=== PATIENT | female | born 1940 | race Caucasian/White ===

== ENCOUNTER 2020-04-01 02:16 | Outpatient (CLI) | payer OTHER, SELFPAY ==
[2020-04-01 18:25] LABS: SARS-CoV-2 RNA PCR Negative
== END 2020-04-01 02:17 | disposition home or self-care (01) ==
LOC: ANHCOVIDDT 02:16
PROVIDERS: PCP Family Medicine; Visit Provider Internal Medicine Gastroenterology
DX: Z01.812 Encounter for preprocedural laboratory examination (principal); Z20.828 Contact with and (suspected) exposure to other viral communicable diseases
CPT/HCPCS: 87635; C9803; U0003

== ENCOUNTER 2020-04-04 01:52 | Day surgery (SDC) | payer OTHER, SELFPAY ==
[2020-03-24 15:13] VITALS: BMI 17.9
[2020-04-04 06:34] VITALS: BP 167/72; PULSE 72; RESP 16; TEMP 36.6; O2SAT 100; BMI 18.1
[2020-04-04] MEDS: LACTATED RINGERS 1,000 ML 150 ML IV CONT (06:50)
--- NOTE | 2020-04-04 07:25 | WPDANESEPPF ---
Anes - Initial Pre Proc Eval Procedure: Operation Date: 04/04/20 07:30 Proposed Procedures p Colonoscopy - Cj Stafford MD Date/Time: 04/04/20 07:25 Surgeon: Cj Stafford MD Pre Op Diagnosis: Positive Cologuard Patient Data Age: 79 Gender: F Height: 5 ft 4 in Weight: 48.1 kg Last Vital Signs Temp 97.9 F 04/04/20 06:34 Pulse 72 04/04/20 06:34 Resp 16 04/04/20 06:34 BP 167/72 H 04/04/20 06:34 Pulse Ox 100 04/04/20 06:34 Allergies Allergy/AdvReac Type Severity Reaction Status Date / Time No Known Allergies Allergy Mild Verified 04/04/20 06:29 Home Medications Medication Instructions Recorded Confirmed Type amlodipine 5 mg tablet 5 mg PO DAILY #90 tablet 12/08/19 03/24/20 Rx calcitonin (salmon) 200 1 spray INTRANASAL (ALT) DAILY 12/08/19 03/24/20 Rx unit/actuation nasal spray #3.7 ml clopidogrel 75 mg tablet 75 mg PO DAILY #90 tablet 12/08/19 04/04/20 Rx metoprolol tartrate 25 mg tablet 25 mg PO BID #180 tablet 01/19/20 04/04/20 Rx atorvastatin 20 mg tablet 20 mg PO DAILY #90 tablet 02/25/20 03/24/20 Rx Patient hx anesthesia problems: none Family hx anesthesia problems: none PMFSH Past Medical History Medical History Cerebral atrophy Coronary atherosclerosis HTN (hypertension) Mixed hyperlipidemia Osteoporosis Family History Family History Mother Family history of Alzheimer's disease Family history of osteoporosis Family history of mental disorder Depression Family history of cataracts Family history of liver disease Family history of arthritis Family history of heart disease in male family member before age 55 Father Family history of alcoholism Family history of arthritis Patient's father is Family history of malignant neoplasm Family history of lung disease Other Family history of lung cancer Social History Social History (Updated 01/05/20 @ 15:05 by Shi Pierre) Social History: Smoking status: Former smoker Second hand tobacco smoke exposure: No Smoking end date: 06/17/86 Alcohol intake: never Substance use: never Substance use type: does not use Living arrangements: alone Gender identity (if verbalized by the patient): Female Spiritual care concerns: No Anes - Eval Final PreProcedure Day of Procedure 04/04/20 07:25 Patient weight: normal Heart: regular rate and rhythm Lungs: clear to auscultation Airway: Mallampati scale class II Neurological: alert and oriented Last oral intake: >/= 8 hours ASA classification: III Emergent: no Anesthetic plan: proceed Anesthesia type and monitoring: general GIVS and standard monitoring Informed Consent: The patient's anesthetic plan and its attendant risks and benefits were discussed with the patient/family/POA. Questions were solicited and answers provided to the satisfaction of the patient/family/POA.
--- NOTE | 2020-04-04 07:58 | WPDGICN ---
Assessment and Plan Assessment and plan (1) Positive colorectal cancer screening using Cologuard test: Code(s): R19.5 - Other fecal abnormalities Status: Inactive Assessment and Plan: Patient recently found to have positive: Guard test. Plan is for colonoscopy to evaluate more thoroughly. It has been 7 years since last exam. (2) Family history of colonic polyps: Code(s): Z83.71 - Family history of colonic polyps Status: Acute Assessment and Plan: Patient's mother had colon polyps. Screening colonoscopy at intervals is suggested. GI Consult Note Consult date/time: 04/04/20 07:58 HPI: Malaika Quinones is a 79 year old female Seen in evaluation at the request of Dr. Cohn. Patient recently had a positive: Guard test in presents for colonoscopy. She states that her weight appetite bowel movements are normal. She denies abdominal pain. She has had no blood in her stools. Family history is significant that her mother had colon polyps. Patient's last colonoscopy was 7 or 8 years ago. Review of Systems Review of Systems: All systems reviewed & are unremarkable except as noted in HPI and below PMFSH Past Medical History Medical History (Updated 04/04/20 @ 08:00 by Cj Stafford MD) Cerebral atrophy Coronary atherosclerosis HTN (hypertension) Mixed hyperlipidemia Osteoporosis Positive colorectal cancer screening using Cologuard test Family History Family History Mother Family history of Alzheimer's disease Family history of osteoporosis Family history of mental disorder Depression Family history of cataracts Family history of liver disease Family history of arthritis Family history of heart disease in male family member before age 55 Father Family history of alcoholism Family history of arthritis Patient's father is Family history of malignant neoplasm Family history of lung disease Other Family history of lung cancer Social History Social History (Updated 01/05/20 @ 15:05 by Shi Pierre) Social History: Smoking status: Former smoker Second hand tobacco smoke exposure: No Smoking end date: 06/17/86 Alcohol intake: never Substance use: never Substance use type: does not use Living arrangements: alone Gender identity (if verbalized by the patient): Female Spiritual care concerns: No Meds Home Medications and Allergies Home Medications Medication Instructions Recorded Confirmed Type amlodipine 5 mg tablet 5 mg PO DAILY #90 tablet 12/08/19 03/24/20 Rx calcitonin (salmon) 200 1 spray INTRANASAL (ALT) DAILY 12/08/19 03/24/20 Rx unit/actuation nasal spray #3.7 ml clopidogrel 75 mg tablet 75 mg PO DAILY #90 tablet 12/08/19 04/04/20 Rx metoprolol tartrate 25 mg tablet 25 mg PO BID #180 tablet 01/19/20 04/04/20 Rx atorvastatin 20 mg tablet 20 mg PO DAILY #90 tablet 02/25/20 03/24/20 Rx Allergies Allergy/AdvReac Type Severity Reaction Status Date / Time No Known Allergies Allergy Mild Verified 04/04/20 06:29 Vital Signs Vital Signs - 24 hr 04/04/20 06:34 Temperature 97.9 F Pulse Rate 72 Respiratory Rate 16 Blood Pressure 167/72 H Pulse Oximetry 100 Exam Narrative: Exam Narrative: Physical exam reveals patient to be alert. Vital signs stable. HEENT exam unremarkable. Lungs are clear to auscultation and percussion. Heart is without murmur or extra sounds. Abdominal exam bowel sounds are present soft nontender with no hepatosplenomegaly. Digital external rectal exam is normal.
[2020-04-04 08:00] VITALS: BP 81/45; PULSE 56; RESP 14; O2SAT 97
[2020-04-04 08:10] VITALS: BP 99/61; PULSE 55; RESP 16; O2SAT 98
[2020-04-04 08:20] VITALS: BP 127/67; PULSE 52; RESP 16; O2SAT 99
[2020-04-04 08:30] VITALS: BP 132/75; PULSE 52; RESP 18; O2SAT 100
== END 2020-04-04 08:52 | disposition home or self-care (01) ==
PROVIDERS: PCP Family Medicine; Visit Provider Internal Medicine Gastroenterology
PROC: 0DJD8ZZ Inspection of Lower Intestinal Tract, Via Natural or Artificial Opening Endoscopic (ICD-10-PCS; CPT 45378; principal; 2020-04-04 07:30)
DX: R19.5 Other fecal abnormalities (principal); D12.2 Benign neoplasm of ascending colon; K64.8 Other hemorrhoids; Z83.71 Family history of colonic polyps; I10 Essential (primary) hypertension; I25.10 Atherosclerotic heart disease of native coronary artery without angina pectoris; M81.0 Age-related osteoporosis without current pathological fracture; E78.2 Mixed hyperlipidemia; Z87.891 Personal history of nicotine dependence; Z79.02 Long term (current) use of antithrombotics/antiplatelets
CPT/HCPCS: 45385; 88305; J2704; J7120

== ENCOUNTER 2021-09-05 11:39 | Emergency (ER) | payer OTHER, SELFPAY ==
--- NOTE | ~2021-09-05 | XR_ITS ---
XR hip LT min 3V w AP pelvis 09/05/2021 13:21 Indication: Left hip pain and bruising Procedure: AP pelvis and 3 views left hip Comparison: No prior studies for comparison. Findings: There are nondisplaced fractures of the left superior pubic ramus, pubic symphysis and poss ibly the left inferior pubic ramus. Osteopenia. Mild osteoarthritis of the hips. There is lower lumba r spondylosis. Impression: 1: Nondisplaced fractures left superior pubic ramus/pubic rami and possibly of the left inferior pubi c ramus. Reviewed, dictated and finalized at location A. Impression: 1: Nondisplaced fractures left superior pubic ramus/pubic rami and possibly of the left inferior pubic ramus.
[2021-09-05 11:44] VITALS: BP 155/76; PULSE 94; RESP 16; TEMP 36.7; O2SAT 95
--- NOTE | 2021-09-05 14:14 | ED.FALL ---
HPI - Fall General Chief Complaint: Fall Stated Complaint: fall, hip pain Time Seen by Provider: 09/05/21 12:37 Related Data Allergies Allergy/AdvReac Type Severity Reaction Status Date / Time No Known Allergies Allergy Mild Verified 05/30/21 11:30 [facility] Past Medical History Medical History (Updated 09/05/21 @ 14:17 by Alona Weems MD) Cerebral atrophy Coronary atherosclerosis HTN (hypertension) Mixed hyperlipidemia Osteoporosis Positive colorectal cancer screening using Cologuard test Surgical History Surgical History (Updated 06/17/21 @ 17:57 by Suki Reyes MD) H/O breast augmentation Hx of colonoscopy with polypectomy Family History Family History Mother Family history of Alzheimer's disease Family history of osteoporosis Family history of mental disorder Depression Family history of cataracts Family history of liver disease Family history of arthritis Family history of heart disease in male family member before age 55 Father Family history of alcoholism Family history of arthritis Patient's father is Family history of malignant neoplasm Family history of lung disease Other Family history of lung cancer Social History Social History Social History: Smoking status: Former smoker Tobacco type: cigarettes Second hand tobacco smoke exposure: No Smoking end date: 06/17/86 Alcohol intake: never Substance use: never Substance use type: does not use Gender identity (if verbalized by the patient): Female Sexual Orientation (if Verbalized by the Patient): Straight or Heterosexual Spiritual care concerns: No Course Vital Signs Vital signs: Vital Signs Temperature 36.7 C 09/05/21 11:44 Pulse Rate 94 09/05/21 11:44 Respiratory Rate 16 09/05/21 11:44 Blood Pressure 155/76 H 09/05/21 11:44 Pulse Oximetry 95 09/05/21 11:44 Temperature 36.7 C 09/05/21 11:44 Pulse Rate 94 09/05/21 11:44 Respiratory Rate 16 09/05/21 11:44 Blood Pressure 155/76 H 09/05/21 11:44 Pulse Oximetry 95 09/05/21 11:44 MDM - Fall Imaging Data Radiologist's impression: Impressions Hip/Pelvis X-Ray 09/05/21 13:22 Impression: 1: Nondisplaced fractures left superior pubic ramus/pubic rami and possibly of the left inferior pubic ramus. Critical Care Time Critical Care Time Critical Care Time: No Discharge Plan Discharge Clinical Impression: Closed pelvic fracture Qualifiers: Encounter type: subsequent encounter Pelvic bone location: pubis Sublocation of pubis: unspecified portion of pubis Laterality: left Fracture healing: with nonunion Qualified Code(s): S32.502K - Unspecified fracture of left pubis, subsequent encounter for fracture with nonunion Patient Disposition: Home, Self-Care Condition: Stable Instructions: Antibiotic Form, Pelvic Fracture (ED) Additional Instructions: Return if symptoms are worsening , call your family physician for appointment, take Tylenol as as needed for aches and pain, continue home medications. Prescriptions: New tramadol [Ultram] 50 mg tablet 50 mg PO Q6H PRN (Reason: pain) Qty: 30 RF: 0 No Action calcitonin (salmon) 200 unit/actuation spray,non-aerosol 1 spray intranasal (ALT) DAILY Qty: 3.7 RF: 5 atorvastatin 20 mg tablet See Rx Instructions .ROUTE .COMPLEX Qty: 90 RF: 1 clopidogrel 75 mg tablet 75 mg PO DAILY Qty: 90 RF: 1 amlodipine 5 mg tablet 5 mg PO DAILY Qty: 90 RF: 1 metoprolol tartrate 25 mg tablet 25 mg PO BID Qty: 180 RF: 1 Follow-up/Referrals: Devonte Loyd MD [Physician] - 09/06/21 Suki Reyes MD [Primary Care Provider] -
== END 2021-09-05 14:58 | disposition home or self-care (01) ==
PROVIDERS: Emergency Provider Emergency Medicine; PCP Family Medicine
DX: S32.592A Other specified fracture of left pubis, initial encounter for closed fracture (principal); W10.9XXA Fall (on) (from) unspecified stairs and steps, initial encounter; G31.9 Degenerative disease of nervous system, unspecified; I25.10 Atherosclerotic heart disease of native coronary artery without angina pectoris; I10 Essential (primary) hypertension; E78.2 Mixed hyperlipidemia; M81.0 Age-related osteoporosis without current pathological fracture; Z87.891 Personal history of nicotine dependence
CPT/HCPCS: 73502; 99283

== ENCOUNTER 2021-09-19 15:47 | Outpatient (CLI) | payer OTHER, SELFPAY ==
--- NOTE | ~2021-09-19 | XR_ITS ---
EXAMINATION: XR hip RT 2V w AP pelvis EXAM DATE: 09/19/2021 16:28 INDICATION: Fell 2 Weeks Ago, Pain In Rt Hip Ever Since, Hurts To W/B TECHNIQUE: Right hip frontal, 'frog leg' projections for interpretation. Frontal projection pelvis. Comparison is made to prior examination from 09/05/2021. FINDINGS: Smooth right hip femoral head contour, no radiographic evidence of avascular necrosis. No evidence of right hip fracture. Again there our left pubic symphysis, superior, inferior rami fractu res. There is large amount of colonic stool which is obscuring the sacral arcuate lines, confidently evaluate for sacral fracture. No hip dislocation. Mild lumbar levoscoliosis. IMPRESSION: 1. Acute left pubis, rami fractures. Sacrum poorly visualized. 2. Intact right hip. Reviewed, dictated and finalized at location A.
== END 2021-09-19 15:48 | disposition home or self-care (01) ==
PROVIDERS: PCP Family Medicine; Visit Provider Nurse Practitioner Gerontology
DX: M25.551 Pain in right hip (principal); S32.592A Other specified fracture of left pubis, initial encounter for closed fracture
CPT/HCPCS: 73502

== ENCOUNTER → 2022-01-29 13:07 | Outpatient (CLI) | payer OTHER, SELFPAY ==
--- NOTE | ~2022-01-29 | XR_ITS ---
EXAMINATION: XR chest 2V 01/29/2022 13:21 INDICATION: Hyperlipidemia. PROCEDURE: 2 view chest COMPARISON: 09/19/2007 FINDINGS: No evidence for acute focal pneumonia, edema or pneumothorax. The cardiomediastinal silhoue tte is within normal limits. There are no pleural effusions. There is no pneumothorax suspected. T here are partially calcified bilateral breast implants. There is bibasilar atelectasis/scarring. The lungs are hyperinflated which is consistent with, but not diagnostic of chronic obstructive pulmonary disease. IMPRESSION: 1: Bibasilar atelectasis/scarring. Reviewed, dictated and finalized at location B.
== END ==
PROVIDERS: PCP Family Medicine; Visit Provider Nurse Practitioner Gerontology
DX: E78.2 Mixed hyperlipidemia (principal); I10 Essential (primary) hypertension; R05.3 Chronic cough; R91.8 Other nonspecific abnormal finding of lung field
CPT/HCPCS: 71046

== ENCOUNTER → 2022-05-07 14:47 | Outpatient (CLI) | payer OTHER, SELFPAY ==
--- NOTE | ~2022-05-07 | XR_ITS ---
EXAM: XR thoracic spine 3V DATE: 05/07/2022 15:09 HISTORY: fall 1 week ago neck and mid back pain . COMPARISON: X-ray chest 01/29/2022. FINDINGS: Breast augmentation. An electronic device or monitor overlies the left chest. Thoracic scol iosis. Severe osteopenia. Concave endplate deformities. Vertebral body alignment intact. Increased no w severe anterior wedge deformity of an upper thoracic vertebral body, likely T5. Stable mild height loss in a mid/lower vertebral body, possibly T9. No disc space narrowing. Visualized lung parenchyma is clear. IMPRESSION: Possible interval worsening of the now severe compression deformity in the upper thoracic spine, likely at T5, correlate with acute pain/tenderness. Reviewed, dictated and finalized at location K. ICATION INTEGRATOR IMPRESSION: Possible interval worsening of the now severe compression deformity in the upper thoracic spine, likely at T5, correlate with acute pain/tendernes s.
--- NOTE | ~2022-05-07 | XR_ITS ---
EXAM: XR_CERV2-3V_CR DATE: 05/07/2022 15:09 HISTORY: fall 1 week ago neck and mid back pain . COMPARISON: MR cervical spine 01/04/2010. FINDINGS: Severe osteopenia. Craniocervical association and atlantoaxial joint are aligned. No prever tebral soft tissue swelling. Vertebral bodies are aligned. Lower cervical straightening. Head forward positioning, with exaggeration of the upper cervical lordosis mild anterior wedge deformity at C6, t he remaining vertebral body heights are maintained. Multilevel mild degenerative disc disease. Multil evel mild facet arthropathy. IMPRESSION: Mild wedge compression fracture at C6 of uncertain age, correlate with pain/tenderness. Reviewed, dictated and finalized at location K. INTERNSHIP IMPRESSION: Mild wedge compression fracture at C6 of uncertain age, correlate w ith pain/tenderness.
== END ==
PROVIDERS: PCP Family Medicine; Visit Provider Nurse Practitioner Gerontology
DX: S12.591A Other nondisplaced fracture of sixth cervical vertebra, initial encounter for closed fracture (principal); X58.XXXA Exposure to other specified factors, initial encounter
CPT/HCPCS: 72040; 72072

== ENCOUNTER 2022-08-16 13:42 | Outpatient (CLI) | payer OTHER, SELFPAY ==
--- NOTE | ~2022-08-16 | DEXA_ITS ---
Bone Density Report Name: NASIMA POSEY Age: 82 Sex: Female Ethnicity: White Date of : 1940 Indication: postmenopausal; screening for osteoporosis; height loss; prior fracture; hysterectomy; Referring Provider: MADDY BARNETT Study: Bone densitometry was performed. Exam Date: August 16, 2022 Accession number: [id number] Bone Density: Region BMD T-score Z-score Classification AP Spine(L1, L2, L3) 0.596 -3.8 -1.2 Osteoporosis Femoral Neck (Left) 0.493 -3.2 -0.9 Osteoporosis Total Hip (Left) 0.608 -2.7 -0.6 Osteoporosis Femoral Neck (Right) 0.504 -3.1 -0.8 Osteoporosis Total Hip (Right) 0.551 -3.2 -1.1 Osteoporosis Total Hip Mean 0.580 -3.0 -0.9 Osteoporosis World Health Organization criteria for BMD impression classify patients as: Normal (T-score at or above -1.0), Osteopenia (T-score between -1.0 and -2.5), or Osteoporosis (T-score at or below -2.5). 10-year Fracture Risk: FRAX not reported because: Some T-score for Spine Total or Hip Total or Femoral Neck at or below -2.5 Prior hip or vertebral fracture Treated for osteoporosis Clinical Information Provided by Patient: Have had a previous hip or vertebral fracture Has had a low trauma fracture Is being treated for osteoporosis Has used the following medications: Fosamax (i.e. alendronate), Vitamin D, Calcium Has the following medical conditions: Hysterectomy Patient maximum height was 66 Menopause Age: 33 Drinks caffeinated beverages Onset of menses at age 14 Number of children 3 Impression: The patient has established osteoporosis, based on the Total Spine T-score and the existence of a prior fracture. The patient has risk factors, including: previous fracture. Discussion: It is important to ask patients whether they are taking their medications and to encourage continued and appropriate compliance with their osteoporosis therapies to reduce fracture risk. It is also important to review their risk factors and encourage appropriate calcium and vitamin D intakes, exercise, fall prevention and other lifestyle measures. Follow-Up: Consider a repeat BMD and Vertebral Fracture Assessment (VFA) exam in 2 years or sooner if medically necessary, to reassess this patient's status. Reported by: DAWN on 08/16/2022 2:54:00 PM. Reviewed, dictated and finalized at location AMichael CORTEZ
--- NOTE | ~2022-08-16 | MM_ITS ---
EXAMINATION: MM scrn matheus implant BI w sandie HISTORY: Screening mammogram TECHNIQUE: Craniocaudal and mediolateral oblique 3-D tomosynthesis images with implant displacement a nd synthetic 2-D images were generated. Craniocaudal and mediolateral oblique views of the breasts wi thout implant displacement were obtained using full field digital mammography. CAD analysis was submi tted and interpreted. COMPARISON: 03/01/2016, 01/06/2015 bilateral implant screening mammogram examinations BREAST PARENCHYMAL COMPOSITION: The breasts are extremely dense, which lowers the sensitivity of mamm ography. FINDINGS: Status post bilateral augmentation mammoplasty. There is no evidence of suspicious mass, ca lcification, or architectural distortion to suggest malignancy in either breast. There has been no campa spicious interval change. IMPRESSION: 1. No mammographic evidence of malignancy. 2. Recommend routine screening mammography in one year. BI-RADS Category 1: Negative Reviewed, dictated and finalized at location A. KSMITH
== END 2022-08-16 13:43 | disposition home or self-care (01) ==
PROVIDERS: PCP Family Medicine; Visit Provider Family Medicine
DX: Z12.31 Encounter for screening mammogram for malignant neoplasm of breast (principal); Z78.0 Asymptomatic menopausal state; M81.0 Age-related osteoporosis without current pathological fracture
CPT/HCPCS: 77063; 77067; 77080

== ENCOUNTER → 2022-09-24 09:47 | Outpatient (CLI) | payer OTHER, SELFPAY ==
--- NOTE | ~2022-09-24 | XR_ITS ---
Clinical Indication: Cough PA and lateral views of the chest: Comparison: 01/29/2022 Findings: The lungs are clear, without evidence of focal consolidation or pleural effusion. Cardiome diastinal silhouette is within normal limits. Probable implantable cardiac device present. Bones and soft tissues are stable. Impression: Clear lungs. Reviewed, dictated and finalized at location . Impression: Clear lungs.
== END ==
PROVIDERS: PCP Family Medicine; Visit Provider Nurse Practitioner Gerontology
DX: R05.9 Cough, unspecified (principal)
CPT/HCPCS: 71046

== ENCOUNTER 2025-05-06 15:46 | Outpatient (CLI) | payer OTHER, SELFPAY ==
--- NOTE | ~2025-05-06 | XR_ITS ---
EXAM/PROCEDURE: XR lumbar spine 2-3V HISTORY: M25.551 - Pain in right hip COMPARISON: None available. TECHNIQUE: 3 view lumbar spine FINDINGS: There appears to be 6 to 7 mm grade 1 anterolisthesis L5 on S1. Moderate to severe degenerative disc changes at L4-5. Advanced sclerotic changes throughout the lower lumbar spine. The bones appear osteopenic as well. No gross acute or aggressive bony or soft tissue process seen, however the fine bony detail is significantly obscured due to large amount of overlying stool and bowel gas. IMPRESSION: No gross acute or aggressive bony or soft tissue process, with limitations noted above. Advanced degenerative changes especially in the lower lumbar levels. Reviewed, dictated and finalized at location A. ATOLOGICAL SURGEON IMPRESSION: No gross acute or aggressive bony or soft tissue process, with limitations note d above. Advanced degenerative changes especially in the lower lumbar levels.
--- NOTE | ~2025-05-06 | XR_ITS ---
EXAMINATION: XR hip BI 2V w AP pelvis DATE: 05/06/2025 16:26 INDICATION: Right hip pain TECHNIQUE: Anteroposterior view of the pelvis and anteroposterior and frog-leg lateral views of the left hip and anteroposterior and frog-leg lateral views of the right hip and were obtained. COMPARISON: 09/19/2021 FINDINGS: Interval healing of the previously seen left superior and inferior pubic rami fractures with residual fracture deformity. Bone alignment is otherwise normal. No acute fractures. No suspected osteonecrosis. Mild osteoarthritis at the bilateral hip and sacroiliac joints. IMPRESSION: 1. Old healed left superior and inferior pubic rami fractures. No acute osseous abnormality. 2. Mild bilateral hip osteoarthritis. Reviewed, dictated and finalized at location A. S COUNSELOR
== END 2025-05-06 15:47 | disposition home or self-care (01) ==
LOC: MICIMG 15:48
PROVIDERS: PCP Family Medicine
DX: M16.0 Bilateral primary osteoarthritis of hip (principal); M51.360 Other intervertebral disc degeneration, lumbar region with discogenic back pain only; Z87.81 Personal history of (healed) traumatic fracture
CPT/HCPCS: 72100; 73521